=== PATIENT | female | born 1995 | race Two or more races ===

== ENCOUNTER 2018-05-25 10:29 | Emergency (ER) | payer MEDICAID ==
[2018-05-25] MEDS ORDERED: KETOROLAC TROMETHAMINE INJ/PF 30 MG/1 ML SDV IV ONE (11:08)
[2018-05-25] MEDS ORDERED: NORMAL SALINE 1000 ML 1,000 ML IV ONE ×3 (11:08→13:39)
[2018-05-25] MEDS ORDERED: ACETAMINOPHEN 325 MG TABLET PO ONE (11:08)
--- NOTE | 2018-05-25 11:16 | ER Document Report ---
HPI - HPI Time Seen by Provider: 05/25/18 10:57 Pain Level: 3 Notes: Patient is a otherwise healthy 22-year-old female presenting with chief complaint of fever and body aches that started yesterday. Patient reports cough but denies any sinus congestion, sore throat, nausea, vomiting or diarrhea. Patient reports she was around her niece a few days ago who had a similar symptoms. Patient denies taking any Tylenol or ibuprofen this morning. Patient 103 T-max, heart rate in the 140s on arrival. - CONSTITUTIONAL Constitutional: REPORTS: Fever, Chills - RESPIRATORY Respiratory: REPORTS: Coughing - REPRODUCTIVE Reproductive: DENIES: : Past Medical History - General Information source: Patient - Social History Smoking Status: Never Smoker Frequency of alcohol use: None Drug Abuse: None Family History: Reviewed & Not Pertinent Patient has suicidal ideation: No Patient has homicidal ideation: No - Medical History Medical History: Negative Renal/ Medical History: Denies: Hx Peritoneal Dialysis Surgical Hx: Negative - Immunizations Immunizations up to date: Yes Vertical Provider Document - CONSTITUTIONAL Notes: PHYSICAL EXAMINATION: GENERAL: Well-nourished and in no acute distress. HEAD: Atraumatic, normocephalic. EYES: Pupils equal round and reactive to light, extraocular movements intact, conjunctiva are normal. ENT: Nares patent, oropharynx clear without exudates. Moist mucous membranes. NECK: Normal range of motion, supple without lymphadenopathy LUNGS: Breath sounds clear to auscultation bilaterally and equal. No wheezes rales or rhonchi. HEART: S1-S2 present ABDOMEN: Soft, nontender, nondistended abdomen. No guarding, no rebound. No masses appreciated. Female : No CVA tenderness. Musculoskeletal: Normal range of motion, no pitting or edema. No cyanosis. NEUROLOGICAL: Cranial nerves grossly intact. Normal speech, normal gait. Normal sensory, motor exams PSYCH: Normal mood, normal affect. SKIN: Warm, Dry, normal turgor, no rashes or lesions noted. - INFECTION CONTROL TRAVEL OUTSIDE OF THE [place] IN LAST 30 DAYS: No Course - Re-evaluation Re-evalutation: 05/25/18 11:16 Patient's temperature 103 on arrival, heart rate 146. Will obtain influenza test and give patient p.o. acetaminophen, IV fluids and IV Toradol. Patient denies any dysuria and has no CVA tenderness. Likely this is influenza. Flu A positive. Heart rate improved after IV fluid boluses. Fever improved after administration of Tylenol and IV Toradol. Vitals stable for D/C. - Vital Signs Vital signs: Temp Pulse Resp BP Pulse Ox 103.0 F H 141 H 22 H 124/67 97 05/25/18 10:42 05/25/18 10:42 05/25/18 10:42 05/25/18 10:42 05/25/18 10:42 Discharge - Discharge Clinical Impression: Influenza A Condition: Stable Disposition: HOME, SELF-CARE Additional Instructions: Influenza What are conditions that should receive medical attention? The development of difficulty breathing. Lip color changes to blue or purple. Persistent vomiting and unable to keep liquids down with signs of dehydration such as: dizziness when standing, unable to urinate, or if child/ is crying no tears are noticed. Is less responsive than normal or becomes confused. How do I decrease the spread of flu in my home? Taking care of the sick patient at home: Keep the sick person in a room separate from the common areas of the house. Keep the "sickroom" door closed. If the person with the flu needs to leave the home, they should cover their nose/mouth when coughing or sneezing and wear a disposable (surgical) mask if available. These masks may be available at your local pharmacy, medical supply and hardware store. If the sick person is in common areas of the house, have them wear a surgical mask. If possible, have the sick person use a separate bathroom that should be cleaned daily with a household disinfectant. If you are the caregiver: Avoid being face to face with the sick adult person as much as possible. Try to stay at least 6 feet away and wear a disposable surgical mask when possible. When holding small children who are sick, place their chin on your shoulder so that they will not cough in your face. Wash your hands after you touch the sick person or handle their tissues and laundry. Wear a mask if you leave home, as you may be infected from taking care of someone and not know it yet. Watch yourself and others in the home for flu symptoms and contact your doctor if symptoms occur. NOTE: Antiviral medication used to reduce the symptoms of the flu works only if taken within 48 hours, and best within 24 hours of symptom onset. Household Cleaning, laundry and waste disposal: Tissues and other disposable items used by the sick person should be thrown away in the trash. Wash your hands after touching these used items. No special waste disposal is required. Keep surfaces (especially bedside tables, bathroom surfaces, and toys for children) clean by wiping them down with a safe household disinfectant according to the directions on the product label. Per CDC advice, most people will not receive testing to confirm flu. Also based on the person's health history and onset of symptoms, not all patients will receive prescriptions for antiviral medications. If you have questions related to this, please ask your healthcare provider. For more information, you can call the Centers for Disease Control and Prevention ([facility]) Hotline at 4-539-FTGSecret Escapes This line is available in [place] and [place], 24 hours a day, 7 days a week. Or www.[employer] or www.cdc.gov Flu-Like Illness Home Instructions: The influenza virus infection can cause a wide rage of symptoms, including: Fever, cough, sore throat, body aches, headaches, chills, fatigue, with some patients reporting diarrhea and vomiting Like seasonal influenza A, H1N1 ("swine flu")in humans can vary in severity from mild to severe Severe illness with pneumonia, respiratory failure and even is p ossible Certain groups might be more likely to develop a severe illness from H1N1 infection. Sometimes bacterial infections may occur at the same time as or after infection with influenza viruses and lead to pneumonias, ear infections, or sinus infections. How Flu Spreads The main way that influenza viruses spread is through respiratory droplets of coughs and sneezes. This can happen when someone with the infection coughs or sneezes and the particles fly through the air and land on other people and surfaces. If the person covers their mouth and nose with their hand but does not wash their hands immediately, then these germs are passed onto the next object that they touch. People with Influenza A or suspected H1N1 (swine flu) who are cared for at home should: Check with their doctor about any special care that they might need if they are or have a health condition such as diabetes, heart disease, asthma or emphysema. Also, limit caregiver to one (if possible). women or those with chronic health conditions should not take care of the flu patient unless necessary. Check with their doctor about whether or not medications are needed that may lessen the symptoms of the flu. Stay at home until 24 hours fever free without the use of fever reducing medication. Get plenty of rest and avoid other healthy people in your home. Drink plenty of clear liquids to keep from getting dehydrated. Take medications like Tylenol (Acetaminophen), Advil/Motrin/Nuprin (Ibuprofen) or Aleve (Naproxen) for fevers and aches. All children under the age of 18 years of age should not take aspirin or products containing aspirin (e.g. Pepto Bismol), as this can cause a rare serious illness called Zeferino Syndrome. Over the counter medications for flu and colds may help, but it is very important to follow the package directions. Remember that the medicine may help the symptoms, but it will not help prevent others from getting sick if they are around you. Cover coughs and sneezes using your bent arm. Clean hands with soap and water or an alcohol-based hand rub often, especially after using tissues to cough or sneeze. Encourage hand washing frequently for all people living in the home! The sick person should not have visitors other than caregivers. Encourage concerned loved ones to call instead of visit. Avoid close contact with others-do not go to work or school while sick. Prescriptions: Oseltamivir Phosphate [Tamiflu 75 mg Capsule] 75 mg PO BID #10 capsule Forms: Return to Work
[2018-05-25 11:38] LABS: A TYPE INFLUENZA AG POSITIVE (NEGATIVE); B INFLUENZA AG NEGATIVE (NEGATIVE)
[2018-05-25 13:30] VITALS: BP 103/55
== END 2018-05-25 14:45 | disposition home or self-care (01) ==
LOC: ER 10:29
DX: J10.1 Influenza due to other identified influenza virus with other respiratory manifestations (principal); R50.9 Fever, unspecified; R52 Pain, unspecified; R05 Cough
CPT/HCPCS: 99283; 96361; 96374; 87804; J3490; J1885; J7030

== ENCOUNTER 2018-11-01 03:10 | Emergency (ER) | payer MEDICAID ==
[2018-11-01] MEDS ORDERED: ACETAMINOPHEN 325 MG TABLET PO ONE (04:07)
--- NOTE | 2018-11-01 04:13 | ER Document Report ---
ED Medical Screen (RME) - General Stated Complaint: CHEST PAIN Time Seen by Provider: 11/01/18 03:54 Notes: Patient is a 22-year-old female who presents emergency department with a chief complaint of chest pain. She is currently 5 and half months . She states that when she takes deep breath and it hurts on her left side. She is never had this before. Denies any other past medical history. Exam: Reproducible chest pain upon palpation of left side. I have greeted and performed a rapid initial assessment of this patient. A comprehensive ED assessment and evaluation of the patient, analysis of test results and completion of medical decision making process will be conducted by an additional ED providers. TRAVEL OUTSIDE OF THE [place] IN LAST 30 DAYS: No - Related Data Allergies/Adverse Reactions: No Known Allergies Allergy (Verified 05/25/18 10:30) Past Medical History Renal/ Medical History: Denies: Hx Peritoneal Dialysis - Immunizations Immunizations up to date: Yes Physical Exam - Vital signs Vitals: Temp Pulse Resp BP Pulse Ox 98.1 F 72 24 H 115/66 99 11/01/18 03:25 11/01/18 03:25 11/01/18 03:25 11/01/18 03:25 11/01/18 03:25 Course - Vital Signs Vital signs: Temp Pulse Resp BP Pulse Ox 98.1 F 72 24 H 115/66 99 11/01/18 03:25 11/01/18 03:25 11/01/18 03:25 11/01/18 03:25 11/01/18 03:25
[2018-11-01 04:35] LABS: ABSOLUTE BASOPHILS # (AUTO) 0.1 10^3/uL (0.0-0.2); ABSOLUTE EOSINOPHILS # (AUTO) 0.3 10^3/uL (0.0-0.6); ABSOLUTE LYMPHOCYTES (AUTO) 2.4 10^3/uL (0.5-4.7); ABSOLUTE MONOCYTES (AUTO) 0.8 10^3/uL (0.1-1.4); ABSOLUTE NEUT (AUTO) 4.9 10^3/uL (1.7-8.2); EOSINOPHILS % (AUTO) 4.1 % (0-6); HEMATOCRIT 32.8 % (36.0-47.0); HEMOGLOBIN 11.1 g/dL (12.0-15.5); LYMPHOCYTES % (AUTO) 28.5 % (13-45); MEAN CORPUSCULAR HEMOGLOBIN 28.7 pg (27.0-33.4); MEAN CORPUSCULAR HGB CONC 33.7 g/dL (32.0-36.0); MEAN CORPUSCULAR VOLUME 85 fl (80-97); MONOCYTES % (AUTO) 8.9 % (3-13); PLATELET COUNT 361 10^3/uL (150-450); RED BLOOD COUNT 3.85 10^6/uL (3.72-5.28); RED CELL DISTRIBUTION WIDTH 13.3 % (11.5-14.0); SEGMENTED NEUTROPHILS % (AUTO) 57.5 % (42-78); TOTAL CELLS COUNTED % (AUTO) 100 %; WHITE BLOOD COUNT 8.5 10^3/uL (4.0-10.5)
[2018-11-01 05:10] LABS: ALANINE AMINOTRANSFERASE 21 U/L (9-52); ALBUMIN 3.7 g/dL (3.5-5.0); ALKALINE PHOSPHATASE 113 U/L (38-126); ANION GAP 7 (5-19); ASPARTATE AMINO TRANSFERASE 24 U/L (14-36); BILIRUBIN,DIRECT 0.2 mg/dL (0.0-0.4); BILIRUBIN,TOTAL 0.3 mg/dL (0.2-1.3); BLOOD UREA NITROGEN 10 mg/dL (7-20); CALCIUM 9.1 mg/dL (8.4-10.2); CARBON DIOXIDE 22 mmol/L (22-30); CHLORIDE 106 mmol/L (98-107); GLUCOSE 79 mg/dL (75-110); POTASSIUM 4.3 mmol/L (3.6-5.0); SODIUM 135.2 mmol/L (137-145); TOTAL PROTEIN 7.1 g/dL (6.3-8.2)
[2018-11-01] MEDS ORDERED: ACETAMINOPHEN 325 MG TABLET ONE (06:13)
--- NOTE | 2018-11-01 06:13 | ER Document Report ---
ED General - General Chief Complaint: Chest Wall Pain Stated Complaint: CHEST PAIN Time Seen by Provider: 11/01/18 03:54 [facility] - Follow up as needed Notes: Patient is a 22-year-old female who presents emergency department with a chief complaint of chest pain. She is currently 5 and half months . She states that when she takes deep breath and it hurts on her left side. She is never had this before. Denies any other past medical history. States that the pain is more in her left breast area. She does have a family history of breast cancer. She has not seen her [employer] or primary care in regards to this issue. TRAVEL OUTSIDE OF THE [place] IN LAST 30 DAYS: No - Related Data Allergies/Adverse Reactions: No Known Allergies Allergy (Verified 05/25/18 10:30) Past Medical History - Social History Smoking Status: Never Smoker Family History: Reviewed & Not Pertinent Renal/ Medical History: Denies: Hx Peritoneal Dialysis - Immunizations Immunizations up to date: Yes Review of Systems - Review of Systems Notes: REVIEW OF SYSTEMS: CONSTITUTIONAL : Denies recent illness. Denies recent unintentional weight loss. Denies fever, chills, or sweats. EENT: Denies eye, ear, throat, or mouth pain, discharge, or symptoms. Denies nasal or sinus congestion. CARDIOVASCULAR: See HPI RESPIRATORY: Denies shortness of breath, cough, congestion, difficulty breathing, or wheezing. GASTROINTESTINAL: Denies nausea, vomiting, and diarrhea. Denies abdominal pain. Denies constipation. GENITOURINARY: Denies difficulty urinating, burning, blood in urine, urgency or frequency. MUSCULOSKELETAL: Denies neck and back pain. Denies joint pain or swelling. SKIN: Denies rash, itchiness, or lesions HEMATOLOGIC : Denies easy bruising or bleeding. LYMPHATIC: Denies swollen, painful, enlarged glands. NEUROLOGICAL: Denies no numbness or tingling denies weakness. Denies headache. Denies altered mental status. Denies alteration in speech. PSYCHIATRIC: Denies stress, anxiety, alteration in sleep patterns, or depression. BREAST: See HPI All other systems reviewed and negative. Physical Exam - Vital signs Vitals: Temp Pulse Resp BP Pulse Ox 98.1 F 72 24 H 115/66 99 11/01/18 03:25 11/01/18 03:25 11/01/18 03:25 11/01/18 03:25 11/01/18 03:25 - Notes Notes: PHYSICAL EXAMINATION: GENERAL: Appears well, healthy, well-nourished, no acute distress. HEAD: Normocephalic, atraumatic. EYES: PERRL, conjunctiva normal, all extraocular movements intact, sclera nonicteric ENT: Moist mucous membranes. NECK: Supple, no noticeable swelling, redness, rash. Normal range of motion. LUNGS: Equal breath sounds bilaterally and clear to auscultation. No wheezes rales or rhonchi. CARDIOVASCULAR: S1-S2, regular rate, regular rhythm. Radial pulses 2+, normal. Tenderness upon palpation to left anterior chest. ABDOMEN: Normoactive bowel sounds. Soft, nontender, no guarding, no rebound tenderness, and no masses palpated. EXTREMITIES: Normal strength and range of motion, no pitting or edema. No cyanosis. NEUROLOGICAL: Moves all extremities upon command. Strength 5/5 in all extremities. PSYCH: Normal mood, normal affect. SKIN: Warm, dry. No rash, lesions, ulcerations noted. Normal skin turgor. BREAST: No nodules or lumps noted. Tenderness noted to left breast at 3:00. Course - Re-evaluation Re-evalutation: 11/01/18 06:13 The patient's labs are all unremarkable at this time. She states she still has pain, but it is a little better. When I examined her, her pain was actually in her breast and not so much in her chest. Her breast exam is actually benign and no lumps were palpated. I suspect that her breast/chest pain is due to her breast growing. I have instructed her to continue take Tylenol 1000 mg every 6 hours as needed for her pain. She will [facility] with [facility] in regards to this visit. I do not suspect any life-threatening etiology at this time. I have very low suspicion for ACS, pulmonary emboli, or any other life-threatening etiology at this time. Follow-up precautions were given. Verbal discharge instructions were given to the patient. They verbalized understanding. They are stable for discharge. - Vital Signs Vital signs: Temp Pulse Resp BP Pulse Ox 98.2 F 72 15 109/57 L 100 11/01/18 06:39 11/01/18 03:25 11/01/18 06:39 11/01/18 06:39 11/01/18 06:39 - Laboratory Result Diagrams: 11/01/18 03:52 11/01/18 03:52 Laboratory results interpreted by me: 11/01/18 11/01/18 03:52 03:52 Hgb 11.1 L Hct 32.8 L Sodium 135.2 L - EKG Interpretation by Me Additional EKG results interpreted by me: 11/01/18 06:33 Sinus rhythm. Rate 78. CT 160; QRS 68; QT 380; QTc 433. No ST elevations or depressions noted. Discharge - Discharge Clinical Impression: Breast pain, left Condition: Stable Disposition: HOME, SELF-CARE Additional Instructions: You are seen today in the emergency department for left breast pain. Your labs were normal. Your EKG was normal. Please follow-up with [facility] in regards to this visit. Breast pain can be normal during , because her breasts are growing. He can take Tylenol 1000 mg every 6 hours as needed for your pain. This is safe for . Referrals: [facility] [Provider Group] - Follow up as needed
[2018-11-01 06:51] VITALS: BP 109/57
--- NOTE | 2018-11-01 12:11 | EKG REPORT ---
SEVERITY:- NORMAL ECG - SINUS RHYTHM : Confirmed by: Amber Birch MD 01-Nov-2018 12:10:43
== END 2018-11-01 06:51 | disposition home or self-care (01) ==
LOC: ER 03:10
DX: O26.92 Pregnancy related conditions, unspecified, second trimester (principal); N64.4 Mastodynia; R07.89 Other chest pain
CPT/HCPCS: 93005; 99285; 36415; 85025; 80053; 93010; J3490

== ENCOUNTER 2018-12-26 15:00 | Outpatient (CLI) | payer SELFPAY ==
--- NOTE | 2018-12-26 15:54 | Non Stress Test Report ---
Non Stress Test Datetime Report Generated by CPN: 12/26/2018 15:53 DEMOGRAPHIC Test Number: 1 EGA NST: 34.1 INDICATION Indication for Study: Ordered by Provider VITAL SIGNS Temperature - NST: 98.2 Pulse - NST: 67 RESP - NST: 18 NBPSYS NST: 102 NBPDIA NST: 59 MONITORING Monitor Explained: Monitor Explained; Test Explained; Patient Verbalized Understanding Time on Monitor: 12/26/2018 15:15 Time off Monitor: 12/26/2018 15:44 NST Duration: 29 NST INTERVENTIONS NST Interventions: PO Hydration Physician Notified NST: N Babb BABY A: [id number] BABY A Movement : Present Contraction Frequency : 0 FHR Baseline : 140 Accelerations : 15X15 Decelerations : None Variability : Moderate 6-25bpm NST Review: Meets Criteria for Reactive NST NST Review and Verified By : C. SedgwickRN NST Results: Reactive NST COMMENTS NST Comments: Strip reviewed as reactive by N Babb CNM. Discharged home with kick count instructions NST REPORT Report Trigger: Send Report
== END 2018-12-26 15:44 | disposition home or self-care (01) ==
LOC: LC 15:00
PROVIDERS: ATTEND Obstetrics & Gynecology
DX: Z34.03 Encounter for supervision of normal first pregnancy, third trimester (principal)
CPT/HCPCS: 59025

== ENCOUNTER 2018-12-30 15:58 | Outpatient (CLI) | payer MEDICAID ==
[2018-12-30 16:49] LABS: AMORPHOUS SEDIMENT,URINE TRACE /HPF; APPEARANCE,URINE CLOUDY; BILIRUBIN,URINE NEGATIVE (NEGATIVE); COLOR,URINE YELLOW; GLUCOSE, URINE NEGATIVE (NEGATIVE); KETONES,URINE NEGATIVE (NEGATIVE); LEUKOCYTE ESTERASE,URINE LARGE (NEGATIVE); NITRITE,URINE NEGATIVE (NEGATIVE); PROTEIN,URINE NEGATIVE (NEGATIVE); UROBILINOGEN,URINE NEGATIVE mg/dL (<2.0)
[2018-12-30] MEDS ORDERED: BETAMET ACET/BETAMET NA INJ 6 MG/1 ML IM ONE (16:54)
[2018-12-30] MEDS ORDERED: BETAMET ACET/BETAMET NA INJ 6 MG/1 ML ONE (16:56)
[2018-12-30 17:14] LABS: URINE AMPHETAMINES SCREEN NEGATIVE; URINE BARBITURATES SCREEN NEGATIVE; URINE BENZODIAZEPINES SCREEN NEGATIVE; URINE COCAINE SCREEN NEGATIVE; URINE MARIJUANA (THC) SCREEN NEGATIVE; URINE METHADONE SCREEN NEGATIVE; URINE PHENCYCLIDINE SCREEN NEGATIVE
--- NOTE | 2018-12-30 17:39 | Non Stress Test Report ---
Non Stress Test Datetime Report Generated by CPN: 12/30/2018 17:39 DEMOGRAPHIC EGA NST: 34.5 INDICATION Indication for Study: Ordered by Provider MONITORING Monitor Explained: Monitor Explained; Test Explained; Patient Verbalized Understanding Time on Monitor: 12/30/2018 16:13 Time off Monitor: 12/30/2018 17:30 NST Duration: 77 NST INTERVENTIONS NST Interventions: PO Hydration; Reposition Patient Physician Notified NST: Dr. Abelardo BABY A: [id number] BABY A Movement : Present Contraction Frequency : irregular FHR Baseline : 135 Accelerations : 15X15 Decelerations : None Variability : Moderate 6-25bpm NST Review: Meets Criteria for Reactive NST NST Review and Verified By : FAY KEY Results: Reactive NST REPORT Report Trigger: Send Report
== END 2018-12-30 16:53 | disposition home or self-care (01) ==
LOC: LC 15:58
PROVIDERS: ATTEND Obstetrics & Gynecology
PROC: 4A1HXCZ Monitoring of Products of Conception, Cardiac Rate, External Approach (ICD-10-PCS; principal; 2018-12-30)
DX: O26.893 Other specified pregnancy related conditions, third trimester (principal); Z3A.34 34 weeks gestation of pregnancy
CPT/HCPCS: 81001; 87081; 80307; 59025; J0702; 96372

== ENCOUNTER 2018-12-31 17:04 | Outpatient (CLI) | payer MEDICAID ==
[2018-12-31] MEDS ORDERED: BETAMET ACET/BETAMET NA INJ 6 MG/1 ML IM ONE (17:10)
[2018-12-31] MEDS ORDERED: BETAMET ACET/BETAMET NA INJ 6 MG/1 ML ONE (17:13)
== END 2018-12-31 17:30 | disposition home or self-care (01) ==
LOC: LC 17:04
PROVIDERS: ATTEND Student in an Organized Health Care Education/Training Program
DX: Z34.93 Encounter for supervision of normal pregnancy, unspecified, third trimester (principal)
CPT/HCPCS: 96372; J0702

== ENCOUNTER 2019-01-03 10:49 | Inpatient (IN) | payer MEDICAID ==
[2019-01-03] MEDS ORDERED: OXYTOCIN/NORMAL SALINE 20 UNIT/1,000 ML RTUINJ ONE ×2 (11:15→12:20)
[2019-01-03] MEDS ORDERED: OXYTOCIN 10 UNIT/ML VIAL ONE ×2 (11:15→12:20)
[2019-01-03] MEDS ORDERED: LIDOCAINE 1% INJ-PF (10 MG/ML) 30 ML SDV ONE (11:15)
[2019-01-03] MEDS ORDERED: MISOPROSTOL 0.2 MG TABLET ONE (11:15)
[2019-01-03] MEDS ORDERED: PENICILLIN G-K 5 MILLION UNIT VIAL ONE (11:18)
[2019-01-03 11:54] LABS: APPEARANCE,URINE SLIGHTLY-CLOUDY; BILIRUBIN,URINE NEGATIVE (NEGATIVE); COLOR,URINE YELLOW; GLUCOSE, URINE NEGATIVE (NEGATIVE); KETONES,URINE NEGATIVE (NEGATIVE); LEUKOCYTE ESTERASE,URINE TRACE (NEGATIVE); NITRITE,URINE NEGATIVE (NEGATIVE); PROTEIN,URINE NEGATIVE (NEGATIVE); URINE SPECIFIC GRAVITY 1.017; UROBILINOGEN,URINE NEGATIVE mg/dL (<2.0)
[2019-01-03] MEDS ORDERED: PENICILLIN G POTASSIUM 5,000,000 UNIT in DEXTROSE 5%-WATER 100 ML IV ONE (11:59)
[2019-01-03] MEDS ORDERED: RINGERS SOLUTION,LACTATED 1,000 ML IV PRN (11:59)
[2019-01-03 12:07] LABS: URINE AMPHETAMINES SCREEN NEGATIVE; URINE BARBITURATES SCREEN NEGATIVE; URINE BENZODIAZEPINES SCREEN NEGATIVE; URINE COCAINE SCREEN NEGATIVE; URINE MARIJUANA (THC) SCREEN NEGATIVE; URINE METHADONE SCREEN NEGATIVE; URINE PHENCYCLIDINE SCREEN NEGATIVE
[2019-01-03] MEDS ORDERED: CITRIC ACID/SODIUM CITRATE ORAL SOLN 15 ML UDCUP ONE (12:10)
[2019-01-03] MEDS ORDERED: CEFAZOLIN 1 GM/D5W RTU 1 GM/50 ML RTUPB IV ONE (12:10)
[2019-01-03] MEDS ORDERED: MIDAZOLAM 2 MG/2 ML INJ ONE (12:20)
[2019-01-03] MEDS ORDERED: ONDANSETRON HCL INJ/PF 4 MG/2 ML SDV ONE (12:21)
[2019-01-03 12:44] LABS: ABSOLUTE BASOPHILS # (AUTO) 0.1 10^3/uL (0.0-0.2); ABSOLUTE LYMPHOCYTES (AUTO) 2.9 10^3/uL (0.5-4.7); ABSOLUTE MONOCYTES (AUTO) 1.2 10^3/uL (0.1-1.4); ABSOLUTE NEUT (AUTO) 9.8 10^3/uL (1.7-8.2); BASOPHILS % (AUTO) 0.4 % (0-2); EOSINOPHILS % (AUTO) 0.2 % (0-6); HEMATOCRIT 33.5 % (36.0-47.0); HEMOGLOBIN 10.7 g/dL (12.0-15.5); LYMPHOCYTES % (AUTO) 20.9 % (13-45); MEAN CORPUSCULAR HEMOGLOBIN 25.2 pg (27.0-33.4); MEAN CORPUSCULAR VOLUME 79 fl (80-97); MONOCYTES % (AUTO) 8.5 % (3-13); PLATELET COUNT 298 10^3/uL (150-450); RED BLOOD COUNT 4.26 10^6/uL (3.72-5.28); RED CELL DISTRIBUTION WIDTH 15.1 % (11.5-14.0); TOTAL CELLS COUNTED % (AUTO) 100 %; WHITE BLOOD COUNT 14.1 10^3/uL (4.0-10.5)
[2019-01-03] MEDS ORDERED: KETOROLAC TROMETHAMINE 60 MG/2 ML SDV ONE (13:19)
--- NOTE | 2019-01-03 13:34 | Admission Physical ---
Datetime Report Generated by CPN: 01/03/2019 13:34 CURRENT ADMISSION Chief Complaint: Uterine Contractions Chief Complaint Other: being followed for IUGR. Last EFW 9%, normal dopplers. Received course of BMZ. Indication for Induction: Not Applicable Admit Impression : , Intrauterine ; No Active Labor; Intact Membranes Admit Impression- Other: distress, late decelerations Admit Plan: Admit to Unit; Initiate Section Protocol ALLERGIES Medication Allergies: No Medication Allergies: No Known Allergies (12/30/2018) Latex: No Latex Allergies OBSTETRICAL HISTORY EDC: 02/05/2019 00:00 : 1 Para: 0 Term: 0 : 0 SAB: 0 IAB: 0 Ectopic: 0 Livin Cesareans: 0 VBACs: 0 Multiple Births: 0 SEE RECORDS Alcohol: No Marijuana : No Cocaine: No Other Illicit Drugs: No Cigarettes: Never Smoker. [phone] PHYSICAL EXAM General: Normal HEENT: Normal Heart: Normal Lungs: Normal Breast: Normal Abdomen: Normal Genitourinary Exam: Normal Extremities: Normal Pelvic Type: Adequate Vital Signs: Reviewed VAGINAL EXAM Dilatation: 3 Effacement: 90 Station: 1 Contraction Comments: q 2 min MEMBRANES Membranes: Intact FETUS A EGA: 35.2 Monitoring: External US FHR- Baseline: 163 Variability: Minimal - Undetectable to <=5bpm Accelerations: Absent Decelerations: Late FHR Category: Category III FHR Comments: Late decels noted upon arrival and continued despite mask O2, position change, IVF. Presentation: Vertex Admit Comment: called due to repetitive late decelerations. During the process of preparing for surgery, prolonged deceleration occurred and pt taken to OR immediately. PLANS FOR LABOR AND DELIVERY Feeding Preference: Breast Benefit of Breast Feed Discussed: Yes Circumcision: No INFORMED CONSENT Signature: with User ID: [email or web address]
[2019-01-03] MEDS ORDERED: ACETAMINOPHEN 1,000 MG/100 ML RTUPB IV ONE (13:40)
[2019-01-03] MEDS ORDERED: SIMETHICONE 80 MG TAB.CHEW PO PRN (13:43)
[2019-01-03] MEDS ORDERED: ACETAMINOPHEN 1,000 MG/100 ML RTUPB IV PRN (13:43)
[2019-01-03] MEDS ORDERED: PROMETHAZINE HCL INJ 25 MG/1 ML VIAL IV PRN (13:43)
[2019-01-03] MEDS ORDERED: MEASLES,MUMPS&RUBELLA VACC/PF 0.5 ML VIAL SUBCUT PRN (13:43)
[2019-01-03] MEDS ORDERED: DIPH/PERTUSS(ACELL)/TETANUS VAC/PF 0.5 ML SYR (>=10YO) IM PRN (13:43)
[2019-01-03] MEDS ORDERED: OXYTOCIN/NORMAL SALINE 20 UNIT/1,000 ML RTUINJ IV PRN (13:43)
[2019-01-03] MEDS ORDERED: FLUCONAZOLE 100 MG TABLET PO ONE (13:48)
[2019-01-03] MEDS ORDERED: MORPHINE SULFATE 10 MG/ML INJ IV ONE (13:48)
[2019-01-03] MEDS ORDERED: MORPHINE SULFATE 60 MG/60 ML RTUINJ IV PRN (14:15)
--- NOTE | 2019-01-03 14:19 | Operative Report ---
Operative Report DATE OF SURGERY: 01/03/19 PREOPERATIVE DIAGNOSIS: 35wk IUP, distress POSTOPERATIVE DIAGNOSIS: Same OPERATION: Primary SURGEON: VALENTIN AMBROSE ANESTHESIA: Spinal TISSUE REMOVED OR ALTERED: Placenta, cord blood, cord gas COMPLICATIONS: None ESTIMATED BLOOD LOSS: 500ml INTRAOPERATIVE FINDINGS: Vertex male . Normal uterus/tubes/ovaries. Thick meconium. PROCEDURE: Patient was taken to OR with IV fluids running. Spinal anesthesia was placed and found to be adequate. She was prepped and draped in usual sterile fashion with a leftward tilt. Pfannenstiel incision was made and carried down to underlying fascia. Fascia was knicked in the midline. Incision was extended laterally. Superior aspect of fascia was grasped with Rossi clamps and the underlying rectus muscles dissected off. This was repeated on the inferior fascia. The rectus muscles were divided in the midline. The peritoneum was entered bluntly and the opening extended. Bladder blade was placed. Vesicouteine fascia was grasped and entered sharply with Metzenbaum scissors. Bladder blade was replaced. Hysterotomy incision was made and carried down to underlying membranes, which were ruptured. Thick meconium spilled out. The incision was extended. The 's head was grasped and delivered atraumatically through the hysterotomy incision. Remainder of the body was delivered. Cord was clamped x 2 and cut. Infant was taken to awaiting nursery staff. Cord blood and gas were collected. Placenta was expressed. Uterus was exteriorized and cleared of all clot and debris. Hysterotomy incision was repaired in a running, locked fashion with 0 Monocryl. A second embricating layer was placed. The uterus was returned to the abdomen. The abdomen and gutters were irrigated with copious amounts of warm normal saline. Peritoneum was closed with 2.0 Vicryl. Fascia was repaired with 0 PDS. Subcutaneous tissue was closed with 2.0 Vicryl. Skin was closed in a subcuticular fashion with 3.0 Vicryl. Patient tolerated procedure well. Sponge, needle and instrument counts were correct x 2. Patient was taken to the recovery room in stable condition.
[2019-01-03] MEDS: MORPHINE SULFATE 10 MG/ML INJ ONE ×2 (14:42→14:54)
[2019-01-03] MEDS ORDERED: MORPHINE SULFATE 10 MG/ML INJ ONE (14:50)
[2019-01-03 14:55] LABS: ARTERIAL BLOOD BASE EXCESS -11.6 mmol/L; ARTERIAL BLOOD H2CO3 1.25 mmol/L (1.05-1.35); ARTERIAL BLOOD O2 SATURATION 23.1 % (94-98); ARTERIAL BLOOD PCO2 41.6 mmHg (35-45); ARTERIAL BLOOD TOTAL CO2 17.2 mmol/L (21-25)
[2019-01-03 14:56] LABS: ARTERIAL BLOOD FIO2 CORD GAS
[2019-01-03 14:58] LABS: ARTERIAL BLOOD PO2 19.7 mmHg (80-100)
[2019-01-03] MEDS ORDERED: PENICILLIN G POTASSIUM 2,500,000 UNIT in DEXTROSE 5%-WATER 50 ML IV SCH (15:59)
[2019-01-03] MEDS ORDERED: OXYCODONE-ACETAMINOPHEN 5-325 MG TABLET ONE (17:12)
[2019-01-03] MEDS ORDERED: FLUCONAZOLE 100 MG TABLET ONE (17:16)
[2019-01-03] MEDS: KETOROLAC TROMETHAMINE INJ/PF 30 MG/1 ML SDV IV SCH ×2 (17:23→22:14)
[2019-01-04] MEDS: OXYCODONE-ACETAMINOPHEN 5-325 MG TABLET PO PRN ×3 (02:53→17:50)
[2019-01-04] MEDS: KETOROLAC TROMETHAMINE INJ/PF 30 MG/1 ML SDV IV SCH (05:07)
[2019-01-04 06:25] LABS: HEMATOCRIT 25.4 % (36.0-47.0); MEAN CORPUSCULAR HEMOGLOBIN 25.2 pg (27.0-33.4); MEAN CORPUSCULAR HGB CONC 31.9 g/dL (32.0-36.0); MEAN CORPUSCULAR VOLUME 79 fl (80-97); PLATELET COUNT 241 10^3/uL (150-450); RED BLOOD COUNT 3.22 10^6/uL (3.72-5.28); RED CELL DISTRIBUTION WIDTH 15.1 % (11.5-14.0); WHITE BLOOD COUNT 12.8 10^3/uL (4.0-10.5)
[2019-01-04 06:30] LABS: HEMOGLOBIN 8.1 g/dL (12.0-15.5)
[2019-01-04] MEDS: PRENATAL VITAMIN W DHA CAPSULE PO SCH (10:08)
[2019-01-04] MEDS: DOCUSATE SODIUM 100 MG CAPSULE PO SCH ×2 (10:09→17:50)
--- NOTE | 2019-01-04 11:35 | PDOC PROGRESS REPORT ---
Subjective-OB Progress Note for:: 01/04/19 Subjective: Pt doing well, reports good pain mgmt. She has FC to BSD still d/t labial edema, has not been out of bed yet. Reports regular diet. Physical Exam (OB) Vital Signs: Temp Pulse Resp BP Pulse Ox 98.0 F 56 L 18 135/89 H 100 01/04/19 11:27 01/04/19 11:27 01/04/19 11:27 01/04/19 11:27 01/04/19 11:27 Intake & Output 01/03/19 01/04/19 01/05/19 06:59 06:59 06:59 Output Total 1250 Balance -1250 Weight 57.4 kg - PIH/Pre-Eclampsia Headache: Absent Epigastric Pain: No Visual Changes: No - Dressing Removed: No - silk tape dressing in place Incision: Dressing - Lochia Lochia Amount: Scant < 10 ml Lochia Color: Rubra/Red - Abdomen Description: Tender, Soft Hernia Present: No Fundal Description: Firm, Midline Fundal Height: u/u - u/2 - Genitourinary Lochia: Mild Genitourinary Note: Labia with moderate to severe edema, urethra does not appear edematous Objective-Diagnostic Laboratory: 01/04/19 05:48 01/03/19 01/03/19 01/03/19 10:58 12:23 12:23 WBC 14.1 H RBC 4.26 Hgb 10.7 L Hct 33.5 L MCV 79 L MCH 25.2 L MCHC 32.0 RDW 15.1 H Plt Count 298 Seg Neutrophils % 70.0 Carbonic Acid HCO3/H2CO3 Ratio ABG pH ABG pCO2 ABG pO2 ABG HCO3 ABG O2 Saturation ABG Base Excess FiO2 Urine Color YELLOW Urine Appearance SLIGHTLY-CLOUDY Urine pH 6.0 Ur Specific Catron 1.017 Urine Protein NEGATIVE Urine Glucose (UA) NEGATIVE Urine Ketones NEGATIVE Urine Blood NEGATIVE Urine Nitrite NEGATIVE Ur Leukocyte Esterase TRACE H Urine WBC (Auto) 7 Urine RBC (Auto) 1 Blood Type O POSITIVE Antibody Screen NEGATIVE 01/03/19 01/04/19 12:45 05:48 WBC 12.8 H RBC 3.22 L Hgb 8.1 L D Hct 25.4 L MCV 79 L MCH 25.2 L MCHC 31.9 L RDW 15.1 H Plt Count 241 Seg Neutrophils % Carbonic Acid 1.25 HCO3/H2CO3 Ratio 12:1 ABG pH 7.20 L* ABG pCO2 41.6 ABG pO2 19.7 L* ABG HCO3 16.0 L ABG O2 Saturation 23.1 L ABG Base Excess -11.6 FiO2 CORD GAS Urine Color Urine Appearance Urine pH Ur Specific Catron Urine Protein Urine Glucose (UA) Urine Ketones Urine Blood Urine Nitrite Ur Leukocyte Esterase Urine WBC (Auto) Urine RBC (Auto) Blood Type Antibody Screen Assessment and Plan(PN) - Assessment and Plan (1) heart rate non-reassuring affecting management of mother Is this a current diagnosis for this admission?: Yes (2) IUGR (intrauterine growth restriction) affecting care of mother Qualifiers: Fetus number: single or unspecified fetus Trimester: unspecified trimester Qualified Code(s): O36.5990 - Maternal care for other known or suspected poor growth, unspecified trimester, not applicable or unspecified Is this a current diagnosis for this admission?: Yes (3) labor with delivery Qualifiers: Fetus number: single or unspecified fetus Qualified Code(s): O60.10X0 - labor with delivery, unspecified trimester, not applicable or unspecified Is this a current diagnosis for this admission?: Yes (4) Status post primary low transverse section Is this a current diagnosis for this admission?: Yes - Time Spent with Patient Time with patient: Less than 15 minutes Medications reviewed and adjusted accordingly: Yes - Disposition Anticipated Discharge: Home Within: within 24 hours
[2019-01-04] MEDS ORDERED: IBUPROFEN 800 MG TABLET PO SCH (15:00)
[2019-01-04] MEDS: IBUPROFEN 800 MG TABLET PO SCH (17:50)
[2019-01-05] MEDS: IBUPROFEN 800 MG TABLET PO SCH ×5 (00:54→23:33)
--- NOTE | 2019-01-05 09:01 | PDOC PROGRESS REPORT ---
Subjective-OB Progress Note for:: 01/05/19 - POD #2, s/p section at 35 wks. , baby in the NICU, O negative, rubella Immune Physical Exam (OB) Vital Signs: Temp Pulse Resp BP Pulse Ox 99.1 F 75 18 113/70 100 01/05/19 01:15 01/05/19 01:15 01/05/19 01:15 01/05/19 01:15 01/05/19 01:15 Intake & Output 01/04/19 01/05/19 01/06/19 06:59 06:59 06:59 Output Total 1250 900 Balance -1250 -900 Weight 57.4 kg - General General Appearance: Appears well, Alert In distress: None - PIH/Pre-Eclampsia Headache: Absent Epigastric Pain: No Visual Changes: No - Dressing Removed: Yes Incision: Well Approximated Closure Type: Surgical Glue - Lochia Lochia Amount: Scant < 10 ml Lochia Color: Rubra/Red - Abdomen Description: Soft, Round Hernia Present: No Fundal Description: Firm, Midline Fundal Height: u/u - u/2 - Respiratory Respiratory Status: No respiratory distress - Abdominal Inspection: Normal Distension: No distension - Genitourinary Genitourinary Note: voiding - Extremities Upper extremity: Normal inspection Lower extremities: Normal inspection - Neurological Cognition: Normal Orientation: AAOx4 - Psychological Associated symptoms: Normal affect, Normal mood - Skin Skin Temperature: Warm Skin Moisture: Dry Objective-Diagnostic Laboratory: 01/04/19 05:48 Assessment and Plan(PN) - Assessment and Plan (1) Acute blood loss anemia Is this a current diagnosis for this admission?: Yes (2) heart rate non-reassuring affecting management of mother Is this a current diagnosis for this admission?: Yes (3) IUGR (intrauterine growth restriction) affecting care of mother Qualifiers: Fetus number: single or unspecified fetus Trimester: unspecified trimester Qualified Code(s): O36.5990 - Maternal care for other known or suspected poor growth, unspecified trimester, not applicable or unspecified Is this a current diagnosis for this admission?: Yes (4) labor with delivery Qualifiers: Fetus number: single or unspecified fetus Qualified Code(s): O60.10X0 - labor with delivery, unspecified trimester, not applicable or unspecified Is this a current diagnosis for this admission?: Yes (5) Status post primary low transverse section Is this a current diagnosis for this admission?: Yes - Time Spent with Patient Time with patient: Less than 15 minutes Medications reviewed and adjusted accordingly: Yes - Disposition Anticipated Discharge: Home Within: within 24 hours
[2019-01-05] MEDS: DOCUSATE SODIUM 100 MG CAPSULE PO SCH ×2 (09:57→17:10)
[2019-01-05] MEDS: PRENATAL VITAMIN W DHA CAPSULE PO SCH (09:57)
[2019-01-05] MEDS: OXYCODONE-ACETAMINOPHEN 5-325 MG TABLET PO PRN (23:33)
[2019-01-06] MEDS: IBUPROFEN 800 MG TABLET PO SCH (07:13)
[2019-01-06] MEDS: DOCUSATE SODIUM 100 MG CAPSULE PO SCH (09:30)
[2019-01-06] MEDS: PRENATAL VITAMIN W DHA CAPSULE PO SCH (09:30)
--- NOTE | 2019-01-06 10:03 | PDOC DISCHARGE SUMMARY ---
Final Diagnosis Discharge Date: 01/06/19 - Final Diagnosis (1) heart rate non-reassuring affecting management of mother Is this a current diagnosis for this admission?: Yes (2) IUGR (intrauterine growth restriction) affecting care of mother Is this a current diagnosis for this admission?: Yes (3) labor with delivery Is this a current diagnosis for this admission?: Yes (4) Status post primary low transverse section Is this a current diagnosis for this admission?: Yes Discharge Data - Discharge Medication Home Medications: 95/Iron Fum/Folic/Dha [ + Dha Combo Pack] 1 cap PO DAILY 12/30/18 Reason(s) for Admission: Status Procedures: NST Intrapartum Procedure(s): : Low Cervical, Transverse - Diagnosis Test Laboratory: Temp Pulse Resp BP Pulse Ox 97.9 F 67 12 120/71 98 01/06/19 07:20 01/06/19 07:20 01/06/19 07:20 01/06/19 07:20 01/06/19 07:20 01/03/19 01/03/19 01/04/19 10:58 12:23 05:48 RBC 4.26 3.22 L Hgb 10.7 L 8.1 L D Hct 33.5 L 25.4 L Urine Opiates Screen NEGATIVE - Discharge information/Instructions Discharge Activity: Balance Activity w/Rest, No Lifting Over 10 Pounds, Pelvic Rest Discharge Diet: Regular Disposition: HOME, SELF-CARE Follow up with: [facility] in: 5, Days
[2019-01-06 11:11] VITALS: BP 106/62
== END 2019-01-06 12:10 | disposition home or self-care (01) | DRG 786 ==
LOC: LC 10:49 → LR 12:05 → 2S 15:20
PROVIDERS: ADMIT Obstetrics & Gynecology; ATTEND Obstetrics & Gynecology
PROC: 10D00Z1 Extraction of Products of Conception, Low, Open Approach (ICD-10-PCS; principal; 2019-01-03)
DX: O36.5930 Maternal care for other known or suspected poor fetal growth, third trimester, not applicable or unspecified (principal); O60.14X0 Preterm labor third trimester with preterm delivery third trimester, not applicable or unspecified; D62 Acute posthemorrhagic anemia; O75.89 Other specified complications of labor and delivery; O76 Abnormality in fetal heart rate and rhythm complicating labor and delivery; O77.0 Labor and delivery complicated by meconium in amniotic fluid; O90.81 Anemia of the puerperium; Z3A.35 35 weeks gestation of pregnancy; Z37.0 Single live birth
CPT/HCPCS: 1961; 36415; 80307; 81001; 82803; 85025; 85027; 86592; 86850; 86900; 86901; 88307; 94799; J0131; J0690; J1885; J2250; J2270; J2405; J2540; J2590; J3490